=== PATIENT | female | born 1960 | race African-American/Black ===

== ENCOUNTER 2016-05-12 20:29 | Observation (INO) | payer OTHER ==
[~2016-05-12] VITALS: Ht 162.6 cm; Wt 92.0 kg
[~2016-05-12 20:29] MED LIST: ALBUTEROL SULFAT3 M3 IH; ANTIVERT 12.512.5 MG PO; ASPIRIN E.C. 8181 MG PO; CHOLESTEROL MED; COZAAR 25MG25 MG/TAB PO; EPIPEN 2-PAK1 MG/ML IM; FLEXERIL 1010 MG/TAB PO; K-DUR20 MEQ PO; LEVAQUIN 5500 MG/TA1 PO; LIPITOR 10MG10 MG PO; NEURONTIN600 MG/TAB PO; NORCO 325 MG-51 TAB PO; NORVASC 5MG5 MG/TAB PO; PROAIR HFA0.09 MG/AC IH; RANEXA 500MG T500 MG PO; RT ADVAIR 228 DISKUS IH; ZYRTEC ALLERGY10 MG PO
[2016-05-12 20:49] LABS: BASO # 0.1 (0.0-0.2); BASO % 0.8 % (0.0-2.0); EOS # 0.3 (0.0-0.7); EOS % 2.7 % (0-4.0); GRAN # 5.3 (1.4-6.5); GRAN % 53.5 % (42.2-75.2); HEMATOCRIT 38.3 % (37.0-47.0); HEMOGLOBIN 12.6 g/dl (12.5-16.0); LYMPH # 3.6 (1.2-3.4); LYMPH % 35.6 % (20.0-51.0); MEAN CELL VOLUME 87 fl (80.0-100.0); MEAN CORPUSCULAR HEMOGLOBIN 29 pg (27.0-31.0); MEAN CORPUSCULAR HGB CONC 33 g/dl (33.0-37.0); MEAN PLATELET VOLUME 9.7 fl (7.4-10.4); MONO # 0.7 (0.1-0.6); MONO % 7.1 % (1.7-9.3); PLATELET COUNT 304 K/mm3 (130-400)
[2016-05-12] MEDS ORDERED: PREDNISONE10 MG (20:50)
[2016-05-12] MEDS ORDERED: TAMIFLU 75MG75 MG PO (20:50)
[2016-05-12] MEDS ORDERED: SINGULAIR 110 MG/TAB PO (20:51)
[2016-05-12] MEDS ORDERED: MONODOX100 PO (20:51)
[2016-05-12 21:00] LABS: ADJUSTED CALCIUM 8.7 mg/dL (8.4-10.2); ALANINE AMINOTRANSFERASE 43 U/L (9-52); ALBUMIN 4.2 gm/dL (3.5-5.0); ALKALINE PHOSPHATASE 98 U/L (50-136); ANION GAP 12 mmol/L (7-16); BILIRUBIN,TOTAL 0.6 mg/dL (0.0-1.0); BLOOD UREA NITROGEN 17 mg/dL (7-17); CALCIUM 8.9 mg/dL (8.4-10.2); CARBON DIOXIDE 27 mmol/L (22-30); CHLORIDE 103 mmol/L (98-107); CREATININE, serum 1.06 mg/dL (0.52-1.25); GLUCOSE 96 mg/dL (74-106); POTASSIUM 3.5 mmol/L (3.4-5.0); SODIUM 141 mmol/L (137-145)
[2016-05-12 21:08] LABS: B-TYPE NATRIURETIC PEPTIDE 186 pg/mL (0-125)
[2016-05-12 21:18] LABS: TROPONIN-I < 0.012 ng/mL (0.000-0.034)
[2016-05-12 22:30] VITALS: BP 103/67; PULSE 72; TEMP 97.5
[2016-05-13] VITALS (17 sets, daily range): BP systolic 90–127; BP diastolic 54–74; PULSE 58–68; TEMP 97.2–98.8
[2016-05-13 07:57] LABS: HEMATOCRIT 36.2 % (37.0-47.0); HEMOGLOBIN 11.5 g/dl (12.5-16.0)
[2016-05-13 09:39] LABS: ANION GAP 7 mmol/L (7-16); BLOOD UREA NITROGEN 16 mg/dL (7-17); CALCIUM 8.8 mg/dL (8.4-10.2); CARBON DIOXIDE 30 mmol/L (22-30); CHLORIDE 103 mmol/L (98-107); CHOLESTEROL 156 mg/dL (120-200); CREATININE, serum 1.04 mg/dL (0.52-1.25); GLUCOSE 99 mg/dL (74-106); HDL CHOLESTEROL 44 mg/dL; LDL CHOLESTEROL 101 mg/dL; POTASSIUM 3.9 mmol/L (3.4-5.0); SODIUM 140 mmol/L (137-145); TRIGLYCERIDE 54 mg/dL
[2016-05-13 10:16] LABS: TROPONIN-I < 0.012 ng/mL (0.000-0.034)
[2016-05-13] MEDS ORDERED: PLAVIX 75MG TAB75 MG PO (15:41)
[2016-05-14 03:38] VITALS: BP 93/54; PULSE 63; TEMP 98.1
[2016-05-14 07:51] VITALS: BP 94/49; PULSE 67; TEMP 98
[2016-05-14 08:30] VITALS: BP 94/49; PULSE 67; TEMP 98
[2016-05-14 12:42] VITALS: BP 112/65; PULSE 60; TEMP 97.8
== END 2016-05-14 14:40 | disposition home or self-care (01) ==
LOC: COL.ER 20:29 → MEDICAL 21:40
PROVIDERS: Emergency Medicine
DX: I25.110 Atherosclerotic heart disease of native coronary artery with unstable angina pectoris (principal); I10 Essential (primary) hypertension; E78.5 Hyperlipidemia, unspecified; E11.9 Type 2 diabetes mellitus without complications; J44.9 Chronic obstructive pulmonary disease, unspecified; Z23 Encounter for immunization
CPT/HCPCS: C1760; C1894; G0008; G0378; J2250; J3010; J7030; Q9967

== ENCOUNTER 2016-10-07 10:22 | Emergency (ER) | payer OTHER ==
[~2016-10-07] VITALS: Ht 157.5 cm; Wt 84.5 kg
[~2016-10-07 10:22] MED LIST changes: +MONODOX100 PO; +PLAVIX 75MG TAB75 MG PO; +PREDNISONE10 MG; +SINGULAIR 110 MG/TAB PO; +TAMIFLU 75MG75 MG PO
[2016-10-07 10:25] VITALS: TEMP 98.6
[2016-10-07] MEDS ORDERED: ANTIVERT 12.512.5 MG PO (10:50)
[2016-10-07] MEDS ORDERED: ZOLOFT 50MG50 MG PO (10:52)
[2016-10-07 11:55] VITALS: BP 116/75; PULSE 58
== END 2016-10-07 11:54 | disposition home or self-care (01) ==
LOC: COL.ER 10:22
DX: G44.209 Tension-type headache, unspecified, not intractable (principal); I10 Essential (primary) hypertension; J44.9 Chronic obstructive pulmonary disease, unspecified; E11.9 Type 2 diabetes mellitus without complications

== ENCOUNTER 2016-11-25 14:25 | Emergency (ER) | payer OTHER ==
[~2016-11-25] VITALS: Ht 157.5 cm; Wt 85.9 kg
[~2016-11-25 14:25] MED LIST changes: +ZOLOFT 50MG50 MG PO
[2016-11-25 14:33] VITALS: BP 126/67; TEMP 98.8
[2016-11-25 15:07] LABS: PH 5 (5-8); SQUAMOUS EPITHELIAL 0-2 /hpf; URINE APPEARANCE Clear; URINE BACTERIA None Seen /hpf; URINE BILIRUBIN Negative (NEGATIVE); URINE BLOOD Negative (NEGATIVE); URINE COLOR Straw; URINE GLUCOSE Negative (NEGATIVE); URINE KETONE Negative (NEGATIVE); URINE RBC 0-2 /hpf; URINE UROBILINOGEN Negative (NEGATIVE); URINE WBC 0-2 /hpf
[2016-11-25] MEDS ORDERED: FLEXERIL5 MG PO (16:10)
[2016-11-25 16:23] VITALS: PULSE 86
== END 2016-11-25 16:25 | disposition home or self-care (01) ==
LOC: COL.ER 14:25
PROVIDERS: Physician Assistant
DX: M54.5 Low back pain (principal); M62.838 Other muscle spasm; I10 Essential (primary) hypertension

== ENCOUNTER 2017-03-26 23:28 | Emergency (ER) | payer OTHER ==
[~2017-03-26] VITALS: Ht 160 cm; Wt 81.8 kg
[~2017-03-26 23:28] MED LIST changes: +FLEXERIL5 MG PO
[2017-03-26 23:29] VITALS: BP 126/80; TEMP 97.3
[2017-03-27] MEDS ORDERED: PREDNISONE20 MG PO (00:54)
[2017-03-27 01:12] VITALS: PULSE 86
== END 2017-03-27 01:12 | disposition home or self-care (01) ==
LOC: COL.ER 23:28
DX: J44.1 Chronic obstructive pulmonary disease with (acute) exacerbation (principal); Z87.891 Personal history of nicotine dependence
CPT/HCPCS: J7512

== ENCOUNTER → 2017-04-21 | Outpatient (CLI) | payer OTHER ==
[~2017-04-21] MED LIST changes: +PREDNISONE20 MG PO
== END ==
LOC: COL.PUL 07:17
DX: J44.9 Chronic obstructive pulmonary disease, unspecified (principal); Z87.891 Personal history of nicotine dependence

== ENCOUNTER 2017-07-01 00:52 | Emergency (ER) | payer OTHER ==
[~2017-07-01] VITALS: Ht 160 cm; Wt 82.7 kg
[2017-07-01 01:17] LABS: BASO # 0.1 (0.0-0.2); BASO % 0.8 % (0.0-2.0); EOS # 0.3 (0.0-0.7); EOS % 3.6 % (0-4.0); GRAN % 56.9 % (42.2-75.2); HEMATOCRIT 37.7 % (37.0-47.0); HEMOGLOBIN 12.3 g/dl (12.5-16.0); LYMPH # 2.6 (1.2-3.4); LYMPH % 30.2 % (20.0-51.0); MEAN CELL VOLUME 88 fl (80.0-100.0); MEAN CORPUSCULAR HEMOGLOBIN 29 pg (27.0-31.0); MEAN CORPUSCULAR HGB CONC 33 g/dl (33.0-37.0); MEAN PLATELET VOLUME 9.8 fl (7.4-10.4); MONO # 0.7 (0.1-0.6); MONO % 8.3 % (1.7-9.3); PLATELET COUNT 303 K/mm3 (130-400); RED BLOOD COUNT 4.31 M/mm3 (4.10-5.30); REDCELL DISTRIBUTION WIDTH-CV 12.5 % (11.5-14.5)
[2017-07-01 01:42] LABS: ALANINE AMINOTRANSFERASE 51 U/L (9-52); ALBUMIN 4.1 gm/dL (3.5-5.0); ALKALINE PHOSPHATASE 94 U/L (50-136); ANION GAP 15 mmol/L (7-16); AST,SGOT 29 U/L (15-37); BILIRUBIN,TOTAL 0.3 mg/dL (0.0-1.0); BLOOD UREA NITROGEN 18 mg/dL (7-17); CARBON DIOXIDE 29 mmol/L (22-30); CHLORIDE 101 mmol/L (98-107); CREATININE, serum 0.99 mg/dL (0.52-1.25); GLUCOSE 93 mg/dL (74-106); POTASSIUM 3.5 mmol/L (3.4-5.0); SODIUM 145 mmol/L (137-145)
[2017-07-01 02:05] LABS: TROPONIN-I < 0.012 ng/mL (0.000-0.034)
[2017-07-01] MEDS ORDERED: PREDNISONE20 MG PO (04:03)
[2017-07-01 04:46] VITALS: BP 115/70; PULSE 73
== END 2017-07-01 04:47 | disposition home or self-care (01) ==
LOC: COL.ER 00:52
PROVIDERS: Emergency Medicine
DX: R07.89 Other chest pain (principal); J44.1 Chronic obstructive pulmonary disease with (acute) exacerbation; I10 Essential (primary) hypertension; E78.5 Hyperlipidemia, unspecified; Z87.891 Personal history of nicotine dependence
CPT/HCPCS: J2405; J7512

== ENCOUNTER 2017-09-13 02:40 | Emergency (ER) | payer OTHER ==
[~2017-09-13] VITALS: Ht 160 cm; Wt 82.7 kg
[2017-09-13 02:42] VITALS: TEMP 98.3
[2017-09-13] MEDS ORDERED: RT ADVAIR HFA 2312 G IH (02:54)
[2017-09-13 03:21] LABS: BASO # 0.1 (0.0-0.2); BASO % 0.7 % (0.0-2.0); EOS # 0.3 (0.0-0.7); GRAN # 4.6 (1.4-6.5); HEMATOCRIT 36.6 % (37.0-47.0); HEMOGLOBIN 12.3 g/dl (12.5-16.0); LYMPH # 2.5 (1.2-3.4); LYMPH % 30.7 % (20.0-51.0); MEAN CELL VOLUME 85 fl (80.0-100.0); MEAN CORPUSCULAR HEMOGLOBIN 29 pg (27.0-31.0); MEAN CORPUSCULAR HGB CONC 34 g/dl (33.0-37.0); MEAN PLATELET VOLUME 9.7 fl (7.4-10.4); MONO # 0.6 (0.1-0.6); MONO % 7.4 % (1.7-9.3); PLATELET COUNT 313 K/mm3 (130-400); REDCELL DISTRIBUTION WIDTH-CV 12.9 % (11.5-14.5)
[2017-09-13 03:26] LABS: PROTHROMBIN TIME 11.3 SECONDS (9.7-12.8)
[2017-09-13 03:29] LABS: PARTIAL THROMBOPLASTIN TIME 31.9 SECONDS (26.0-37.0)
[2017-09-13 03:31] LABS: ALANINE AMINOTRANSFERASE 45 U/L (9-52); ALKALINE PHOSPHATASE 142 U/L (50-136); ANION GAP 13 mmol/L (7-16); AST,SGOT 31 U/L (15-37); BILIRUBIN,TOTAL 0.6 mg/dL (0.0-1.0); BLOOD UREA NITROGEN 15 mg/dL (7-17); CALCIUM 9.2 mg/dL (8.4-10.2); CARBON DIOXIDE 25 mmol/L (22-30); CHLORIDE 103 mmol/L (98-107); CREATININE, serum 1.11 mg/dL (0.52-1.25); GLUCOSE 114 mg/dL (74-106); LIPASE 123 U/L (23-300); POTASSIUM 3.6 mmol/L (3.4-5.0); SODIUM 141 mmol/L (137-145); TOTAL PROTEIN 8.2 gm/dL (6.4-8.2)
[2017-09-13 03:36] LABS: D-DIMER < 200.00 ng/mLDDu (200-230)
[2017-09-13 03:43] LABS: TROPONIN-I < 0.012 ng/mL (0.000-0.034)
[2017-09-13 04:39] VITALS: BP 107/65
[2017-09-13] MEDS ORDERED: FLEXERIL 1010 MG/TAB PO (04:46)
[2017-09-13 07:00] VITALS: PULSE 80
== END 2017-09-13 06:56 | disposition home or self-care (01) ==
LOC: COL.ER 02:40
PROVIDERS: Emergency Medicine
DX: S80.12XA Contusion of left lower leg, initial encounter (principal); M79.602 Pain in left arm; I10 Essential (primary) hypertension; E78.5 Hyperlipidemia, unspecified; I25.10 Atherosclerotic heart disease of native coronary artery without angina pectoris; J44.9 Chronic obstructive pulmonary disease, unspecified; Z79.51 Long term (current) use of inhaled steroids; Z90.710 Acquired absence of both cervix and uterus; X58.XXXA Exposure to other specified factors, initial encounter

== ENCOUNTER 2017-09-18 18:47 | Emergency (ER) | payer OTHER ==
[~2017-09-18] VITALS: Ht 160 cm; Wt 82.7 kg
[~2017-09-18 18:47] MED LIST changes: +RT ADVAIR HFA 2312 G IH
[2017-09-18 18:54] VITALS: TEMP 98.8
[2017-09-18 19:14] LABS: BASO # 0.1 (0.0-0.2); BASO % 0.8 % (0.0-2.0); EOS # 0.3 (0.0-0.7); EOS % 3.6 % (0-4.0); GRAN # 5.3 (1.4-6.5); GRAN % 58.5 % (42.2-75.2); HEMOGLOBIN 12.5 g/dl (12.5-16.0); LYMPH # 2.5 (1.2-3.4); LYMPH % 27.9 % (20.0-51.0); MEAN CELL VOLUME 86 fl (80.0-100.0); MEAN CORPUSCULAR HEMOGLOBIN 28 pg (27.0-31.0); MEAN CORPUSCULAR HGB CONC 33 g/dl (33.0-37.0); MEAN PLATELET VOLUME 9.8 fl (7.4-10.4); MONO # 0.8 (0.1-0.6); PLATELET COUNT 327 K/mm3 (130-400); RED BLOOD COUNT 4.44 M/mm3 (4.10-5.30)
[2017-09-18 19:19] LABS: ALANINE AMINOTRANSFERASE 55 U/L (9-52); ALBUMIN 4.1 gm/dL (3.5-5.0); ALKALINE PHOSPHATASE 117 U/L (50-136); ANION GAP 11 mmol/L (7-16); AST,SGOT 33 U/L (15-37); BILIRUBIN,TOTAL 0.6 mg/dL (0.0-1.0); BLOOD UREA NITROGEN 17 mg/dL (7-17); CALCIUM 9.3 mg/dL (8.4-10.2); CARBON DIOXIDE 27 mmol/L (22-30); CHLORIDE 102 mmol/L (98-107); CREATININE, serum 0.99 mg/dL (0.52-1.25); GLUCOSE 84 mg/dL (74-106); LIPASE 62 U/L (23-300); POTASSIUM 3.8 mmol/L (3.4-5.0); SODIUM 140 mmol/L (137-145); TOTAL PROTEIN 8.5 gm/dL (6.4-8.2)
[2017-09-18 19:38] LABS: TROPONIN-I < 0.012 ng/mL (0.000-0.034)
[2017-09-18 20:04] LABS: C-REACTIVE PROTEIN 0.6 mg/dL (0.0-0.9)
[2017-09-18 20:32] LABS: THYROID STIMULATING HORMONE 0.977 uIU/mL (0.465-4.680)
[2017-09-18 21:19] LABS: CREATINE KINASE 212 U/L (30-135)
[2017-09-18 21:33] LABS: TROPONIN-I < 0.012 ng/mL (0.000-0.034)
[2017-09-18] MEDS ORDERED: ZOFRAN 4MG T4 MG/TAB PO (21:35)
[2017-09-18 21:51] VITALS: BP 114/74; PULSE 91
== END 2017-09-18 21:51 | disposition home or self-care (01) ==
LOC: COL.ER 18:47
PROVIDERS: Emergency Medicine
DX: S70.12XA Contusion of left thigh, initial encounter (principal); S70.11XA Contusion of right thigh, initial encounter; M25.512 Pain in left shoulder; X58.XXXA Exposure to other specified factors, initial encounter
CPT/HCPCS: C9113; J2405; J7030

== ENCOUNTER → 2017-11-04 | Outpatient (CLI) | payer OTHER ==
[~2017-11-04] MED LIST changes: +ZOFRAN 4MG T4 MG/TAB PO
== END ==
LOC: COL.RAD 08:35
DX: M99.73 Connective tissue and disc stenosis of intervertebral foramina of lumbar region (principal); M51.36 Other intervertebral disc degeneration, lumbar region

== ENCOUNTER → 2017-12-31 | Outpatient (CLI) | payer OTHER | LOC: MHCPAIN 09:27 | DX: G89.29 Other chronic pain (principal); M47.817 Spondylosis without myelopathy or radiculopathy, lumbosacral region; M54.16 Radiculopathy, lumbar region; M53.3 Sacrococcygeal disorders, not elsewhere classified | CPT/HCPCS: G0463 ==

== ENCOUNTER → 2018-01-01 | Outpatient (CLI) | payer OTHER | LOC: COL.VAS 09:21 | DX: J44.9 Chronic obstructive pulmonary disease, unspecified (principal); I34.0 Nonrheumatic mitral (valve) insufficiency; I07.1 Rheumatic tricuspid insufficiency ==

== ENCOUNTER 2018-01-19 12:24 | Outpatient (RCR) | payer OTHER | END 2018-02-13 18:54 | disposition home or self-care (01) | LOC: WSPT 12:24 | DX: M47.26 Other spondylosis with radiculopathy, lumbar region (principal); M47.818 Spondylosis without myelopathy or radiculopathy, sacral and sacrococcygeal region; M53.3 Sacrococcygeal disorders, not elsewhere classified; G89.29 Other chronic pain; Z87.891 Personal history of nicotine dependence ==

== ENCOUNTER 2018-04-10 03:27 | Emergency (ER) | payer OTHER ==
[~2018-04-10] VITALS: Ht 160 cm; Wt 84.5 kg
[2018-04-10 03:40] VITALS: TEMP 97.7
[2018-04-10 04:05] LABS: BASO # 0.1 (0.0-0.2); BASO % 0.6 % (0.0-2.0); EOS # 0.3 (0.0-0.7); EOS % 3.3 % (0-4.0); GRAN # 4.8 (1.4-6.5); GRAN % 55.9 % (42.2-75.2); HEMATOCRIT 40.2 % (37.0-47.0); LYMPH # 2.8 (1.2-3.4); LYMPH % 32.5 % (20.0-51.0); MEAN CELL VOLUME 87 fl (80.0-100.0); MEAN CORPUSCULAR HEMOGLOBIN 28 pg (27.0-31.0); MEAN CORPUSCULAR HGB CONC 32 g/dl (33.0-37.0); MEAN PLATELET VOLUME 9.8 fl (7.4-10.4); MONO # 0.6 (0.1-0.6); MONO % 7.5 % (1.7-9.3); PLATELET COUNT 321 K/mm3 (130-400); RED BLOOD COUNT 4.61 M/mm3 (4.10-5.30); REDCELL DISTRIBUTION WIDTH-CV 13.2 % (11.5-14.5)
[2018-04-10 04:14] LABS: ALANINE AMINOTRANSFERASE 40 U/L (9-52); ALBUMIN 4.2 gm/dL (3.5-5.0); ALKALINE PHOSPHATASE 133 U/L (50-136); ANION GAP 7 mmol/L (7-16); AST,SGOT 28 U/L (15-37); BILIRUBIN,TOTAL 0.5 mg/dL (0.0-1.0); BLOOD UREA NITROGEN 17 mg/dL (7-17); CALCIUM 9.1 mg/dL (8.4-10.2); CARBON DIOXIDE 27 mmol/L (22-30); CHLORIDE 105 mmol/L (98-107); CREATININE, serum 0.96 mg/dL (0.52-1.25); GLUCOSE 111 mg/dL (74-106); POTASSIUM 3.6 mmol/L (3.4-5.0); SODIUM 139 mmol/L (137-145); TOTAL PROTEIN 7.7 gm/dL (6.4-8.2)
[2018-04-10 04:26] LABS: TROPONIN-I < 0.012 ng/mL (0.000-0.034)
[2018-04-10 04:29] LABS: INR 0.9 (0.8-3.0); PROTHROMBIN TIME 10.7 SECONDS (9.7-12.8)
[2018-04-10 06:15] VITALS: BP 110/75; PULSE 65
== END 2018-04-10 06:34 | disposition home or self-care (01) ==
LOC: COL.ER 03:27
PROVIDERS: Emergency Medicine
DX: R00.2 Palpitations (principal); F41.9 Anxiety disorder, unspecified; J44.9 Chronic obstructive pulmonary disease, unspecified; E78.5 Hyperlipidemia, unspecified; I10 Essential (primary) hypertension

== ENCOUNTER → 2018-04-14 | Outpatient (CLI) | payer OTHER | LOC: COL.RAD 08:00 | DX: M25.511 Pain in right shoulder (principal) | CPT/HCPCS: J3301; Q9967 ==

== ENCOUNTER 2018-05-01 23:32 | Emergency (ER) | payer OTHER ==
[~2018-05-01] VITALS: Ht 160 cm; Wt 82.7 kg
[2018-05-01 23:34] VITALS: TEMP 98.3
[2018-05-01] MEDS ORDERED: NEURONTIN800 MG/TAB PO (23:43)
[2018-05-02 00:34] LABS: COLLECTION METHOD CLEAN CATCH
[2018-05-02 00:48] LABS: MUCOUS Present /lpf; PH 7 (5-8); SQUAMOUS EPITHELIAL 0-2 /hpf; URINE APPEARANCE Clear; URINE BACTERIA None Seen /hpf; URINE BILIRUBIN Negative (NEGATIVE); URINE BLOOD Negative (NEGATIVE); URINE COLOR Straw; URINE GLUCOSE Negative (NEGATIVE); URINE KETONE Negative (NEGATIVE); URINE LEUKOCYTE ESTERASE Negative (NEGATIVE); URINE NITRATE Negative (NEGATIVE); URINE PROTEIN(semi-quant) Negative (NEGATIVE); URINE RBC 0-2 /hpf; URINE UROBILINOGEN Negative (NEGATIVE)
[2018-05-02] MEDS ORDERED: NORCO 325 MG-51 TAB PO (00:50)
[2018-05-02] MEDS ORDERED: FLEXERIL 1010 MG/TAB PO (00:50)
[2018-05-02 00:56] VITALS: BP 107/72; PULSE 70
== END 2018-05-02 01:09 | disposition home or self-care (01) ==
LOC: COL.ER 23:32
PROVIDERS: Physician Assistant
DX: G89.29 Other chronic pain (principal); M54.5 Low back pain

== ENCOUNTER 2018-06-01 00:41 | Emergency (ER) | payer OTHER ==
[~2018-06-01] VITALS: Ht 160 cm; Wt 81.8 kg
[~2018-06-01 00:41] MED LIST changes: +NEURONTIN800 MG/TAB PO
[2018-06-01] MEDS ORDERED: MOBIC15 MG PO (01:04)
[2018-06-01] MEDS ORDERED: TRELEGY ELLIPT1 EACH IH (01:05)
[2018-06-01 01:08] LABS: COLLECTION METHOD CLEAN CATCH
[2018-06-01 01:15] LABS: BASO # 0.1 (0.0-0.2); BASO % 0.5 % (0.0-2.0); EOS # 0.1 (0.0-0.7); GRAN # 10.2 (1.4-6.5); GRAN % 83.6 % (42.2-75.2); HEMOGLOBIN 12.4 g/dl (12.5-16.0); LYMPH # 0.8 (1.2-3.4); LYMPH % 6.8 % (20.0-51.0); MEAN CELL VOLUME 87 fl (80.0-100.0); MEAN CORPUSCULAR HEMOGLOBIN 29 pg (27.0-31.0); MEAN CORPUSCULAR HGB CONC 34 g/dl (33.0-37.0); MEAN PLATELET VOLUME 9.5 fl (7.4-10.4); MONO # 0.9 (0.1-0.6); MONO % 7.5 % (1.7-9.3); PLATELET COUNT 252 K/mm3 (130-400); RED BLOOD COUNT 4.23 M/mm3 (4.10-5.30); REDCELL DISTRIBUTION WIDTH-CV 12.8 % (11.5-14.5)
[2018-06-01 01:17] LABS: HEMATOCRIT 36.6 % (37.0-47.0)
[2018-06-01 01:22] LABS: BILIRUBIN,TOTAL 0.9 mg/dL (0.0-1.0); CALCIUM 9.1 mg/dL (8.4-10.2); CREATININE, serum 0.83 mg/dL (0.52-1.25); POTASSIUM 3.8 mmol/L (3.4-5.0); TOTAL PROTEIN 7.6 gm/dL (6.4-8.2)
[2018-06-01 01:25] LABS: PH 7 (5-8); SQUAMOUS EPITHELIAL 0-2 /hpf; URINE APPEARANCE Clear; URINE BACTERIA None Seen /hpf; URINE BILIRUBIN Negative (NEGATIVE); URINE BLOOD Negative (NEGATIVE); URINE COLOR Straw; URINE GLUCOSE Negative (NEGATIVE); URINE KETONE Negative (NEGATIVE); URINE LEUKOCYTE ESTERASE Negative (NEGATIVE); URINE NITRATE Negative (NEGATIVE); URINE PROTEIN(semi-quant) Negative (NEGATIVE); URINE UROBILINOGEN Negative (NEGATIVE)
[2018-06-01 03:32] VITALS: BP 112/76; PULSE 85; TEMP 98.9
[2018-06-01] MEDS ORDERED: CEPHALEXIN500 M1 PO (03:47)
== END 2018-06-01 04:11 | disposition home or self-care (01) ==
LOC: COL.ER 00:41
PROVIDERS: Emergency Medicine
DX: N39.0 Urinary tract infection, site not specified (principal); I10 Essential (primary) hypertension; J44.9 Chronic obstructive pulmonary disease, unspecified; I25.10 Atherosclerotic heart disease of native coronary artery without angina pectoris; E78.5 Hyperlipidemia, unspecified; Z87.891 Personal history of nicotine dependence
CPT/HCPCS: Q9967

== ENCOUNTER 2018-06-07 17:07 | Emergency (ER) | payer OTHER ==
[~2018-06-07] VITALS: Ht 160 cm; Wt 81.8 kg
[~2018-06-07 17:07] MED LIST changes: +CEPHALEXIN500 M1 PO; +MOBIC15 MG PO; +TRELEGY ELLIPT1 EACH IH
[2018-06-07 19:36] VITALS: BP 118/74
[2018-06-07] MEDS ORDERED: TAMIFLU 75MG75 MG PO (19:55)
[2018-06-07 21:09] VITALS: PULSE 88; TEMP 9.1
== END 2018-06-07 21:10 | disposition home or self-care (01) ==
LOC: COL.ER 17:07
DX: J10.1 Influenza due to other identified influenza virus with other respiratory manifestations (principal); J44.9 Chronic obstructive pulmonary disease, unspecified; I10 Essential (primary) hypertension

== ENCOUNTER → 2018-07-30 | Outpatient (CLI) | payer OTHER ==
[~2018-07-30] MED LIST changes: +NAPROSYN 2250 MG/TAB PO; +TESSALON P100 MG/CAP PO; +ZOLOFT 25MG25 MG PO
== END ==
LOC: MC.RAD 08:46
DX: Z12.31 Encounter for screening mammogram for malignant neoplasm of breast (principal)

== ENCOUNTER 2018-08-12 06:17 | Day surgery (SDC) | payer OTHER ==
[~2018-08-12] VITALS: Ht 160.1 cm; Wt 84.0 kg
[~2018-08-12 06:17] MED LIST changes: -NAPROSYN 2250 MG/TAB PO; -TESSALON P100 MG/CAP PO; -ZOLOFT 25MG25 MG PO
[2018-08-12 06:45] VITALS: BP 119/85; PULSE 75; TEMP 98.4
[2018-08-12] MEDS ORDERED: TESSALON P100 MG/CAP PO (06:53)
[2018-08-12] MEDS ORDERED: ZOLOFT 25MG25 MG PO (06:54)
[2018-08-12] MEDS ORDERED: NAPROSYN 2250 MG/TAB PO (06:55)
--- NOTE | 2018-08-12 07:00 | NUR ---
The patient ambulated back to [facility] independently using a steady gait and appeared to tolerate the activity well. Vital signs obtained. Consent signed. 20G IV started in right forearm with one stick, NS infusing without difficulty. Heart Reg. Lungs clear. Bowel sounds audible. Call light is within reach at this time. The patient's grand daughter was brought back to be at her bedside. Will continue to mointor the patient.
[2018-08-12 08:15] VITALS: BP 114/78; PULSE 69; TEMP 97.6
--- NOTE | 2018-08-12 08:15 | NUR ---
The patient arrived back to [facility] at this time. The patient appears drowsy but arouses easily to her name. The patient's post procedure vital signs were started at this time. The patient's grand daughter is at her bedside at this time. The patient's call light is within reach. Will continue to monitor the patient.
[2018-08-12 08:30] VITALS: BP 123/77; PULSE 67
--- NOTE | 2018-08-12 08:30 | NUR ---
The patient appears more alert at this time and requests to try some cranberry juice and a muffin. The patient's vital signs were started at this time. The patient denies any further needs at this time. Will continue to monitor the patient.
[2018-08-12 08:45] VITALS: BP 137/88; PULSE 67
--- NOTE | 2018-08-12 08:45 | NUR ---
The patient has finished her food and drink and voices a desire to be discharged home. The patient's vital signs appear stable. Will continue to monitor the patient.
--- NOTE | 2018-08-12 09:00 | NUR ---
Discharge instructions were reviewed with the patient and her grand daughter at this time. They both verbalized understanding and have no questions for the nurse at this time. The patient's IV to her right forearm was removed and a pressure dressing was applied to the site.
--- NOTE | 2018-08-12 09:10 | NUR ---
The patient ambulated out independently using a steady gait escorted by DEVIKA Carrillo. The patient's belongings and discharge paperwork were sent with her. THe patient's grand daughter is present to drive her home.
== END 2018-08-12 09:10 | disposition home or self-care (01) ==
LOC: INPTSU 06:17 → UNDOADMOB 06:17 → INPTSU 06:17 → SDCO 06:17 → EDSTATUS 07:30 → SDCO 07:30 → INPTSU 09:10
DX: K21.9 Gastro-esophageal reflux disease without esophagitis (principal); K92.1 Melena; I27.20 Pulmonary hypertension, unspecified; J44.9 Chronic obstructive pulmonary disease, unspecified; Z79.51 Long term (current) use of inhaled steroids; I10 Essential (primary) hypertension; E78.5 Hyperlipidemia, unspecified; G89.29 Other chronic pain; M54.30 Sciatica, unspecified side; F32.9 Major depressive disorder, single episode, unspecified; I25.10 Atherosclerotic heart disease of native coronary artery without angina pectoris; I25.2 Old myocardial infarction; G25.81 Restless legs syndrome; Z90.710 Acquired absence of both cervix and uterus; Z82.49 Family history of ischemic heart disease and other diseases of the circulatory system; Z83.3 Family history of diabetes mellitus; Z91.040 Latex allergy status; Z88.8 Allergy status to other drugs, medicaments and biological substances; Z88.2 Allergy status to sulfonamides; Z88.6 Allergy status to analgesic agent; Z87.891 Personal history of nicotine dependence; M19.90 Unspecified osteoarthritis, unspecified site; Z87.440 Personal history of urinary (tract) infections
CPT/HCPCS: J2704; J7030